=== PATIENT | female | born 1975 | race Caucasian/White ===

== ENCOUNTER → 2021-05-23 | Outpatient (CLI) | payer OTHER | LOC: MRI 05-19 10:00 | DX: M54.50 Low back pain, unspecified (principal); M47.816 Spondylosis without myelopathy or radiculopathy, lumbar region; M47.817 Spondylosis without myelopathy or radiculopathy, lumbosacral region; M51.86 Other intervertebral disc disorders, lumbar region; M51.87 Other intervertebral disc disorders, lumbosacral region; M48.061 Spinal stenosis, lumbar region without neurogenic claudication; M48.07 Spinal stenosis, lumbosacral region | CPT/HCPCS: 36415; 72158; 82565; 84520; A9577 ==

== ENCOUNTER 2021-08-22 17:24 | Emergency (ER) | payer OTHER ==
[2021-08-22 19:40] LABS: HEMOGLOBIN 12.8 gm/dl (12.3-15.3); RED BLOOD COUNT 4.25 M/UL (4.00-5.10); WHITE BLOOD COUNT 8.6 K/UL (4.5-11.0)
[2021-08-22 20:04] LABS: BUN/CREATININE RATIO 21 (0-10)
[2021-08-22] MEDS ORDERED: ACYCLOVIR800 MG PO (20:47)
[2021-08-22] MEDS ORDERED: BACTROBAN OINT22 GM EXT (20:47)
[2021-08-22] MEDS ORDERED: CEPHALEXIN500 M1 PO (20:47)
== END 2021-08-22 20:54 | disposition home or self-care (01) ==
LOC: ER1 17:24
PROVIDERS: Physician Assistant
DX: R07.9 Chest pain, unspecified (principal)
CPT/HCPCS: 80053; 85025; 85652; 86140; 87081; 87880; 99283